=== PATIENT | female | born 2000 | race Hispanic/Latino ===

== ENCOUNTER 2019-04-05 09:12 | Emergency (ER) | payer OTHER ==
[~2019-04-05] VITALS: Ht 162.6 cm; Wt 79.1 kg
[2019-04-05 09:13] VITALS: BP 120/77
[2019-04-05] MEDS ORDERED: MELO15TA28 PO (09:17)
[2019-04-05] MEDS ORDERED: MELA3TAB41 PO (09:17)
[2019-04-05] MEDS ORDERED: [UNRECOGNIZED DRUG - CODE] EX (09:17)
[2019-04-05] MEDS ORDERED: CYCL10TA PO (09:49)
[2019-04-05] MEDS ORDERED: NAPR-837 PO (09:49)
== END 2019-04-05 09:54 | disposition home or self-care (01) ==
LOC: M ED 09:12
DX: M62.830 Muscle spasm of back (principal); S39.012A Strain of muscle, fascia and tendon of lower back, initial encounter; X58.XXXA Exposure to other specified factors, initial encounter; Y92.9 Unspecified place or not applicable; Y93.9 Activity, unspecified; Y99.9 Unspecified external cause status; G89.29 Other chronic pain; M25.562 Pain in left knee; Z79.899 Other long term (current) drug therapy

== ENCOUNTER 2019-04-11 09:37 | Emergency (ER) | payer OTHER ==
[~2019-04-11] VITALS: Ht 162.6 cm; Wt 79.8 kg
[~2019-04-11 09:37] MED LIST: CYCL10TA PO; MELA3TAB41 PO; MELO15TA28 PO; NAPR-837 PO; [UNRECOGNIZED DRUG - CODE] EX
[2019-04-11] MEDS ORDERED: BUPIVACAINE HCL 0.25% 10 ML VIAL SC ONE (10:15)
[2019-04-11] MEDS ORDERED: LIDOCAINE 5% (LIDODERM) PATCH TD ONE (10:15)
[2019-04-11] MEDS ORDERED: ACET-683 PO (11:12)
[2019-04-11] MEDS ORDERED: LIDO5DIS41 TD (11:12)
[2019-04-11] MEDS ORDERED: IBUP-1022 PO (11:12)
[2019-04-11 11:21] VITALS: BP 122/70
== END 2019-04-11 11:21 | disposition home or self-care (01) ==
LOC: M ED 09:37
DX: M54.5 Low back pain (principal)